=== PATIENT | male | born 1990 | race Two or more races ===

== ENCOUNTER 2017-12-05 01:43 | Emergency (ER) | payer SELFPAY ==
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
[2017-12-05] MEDS ORDERED: NS(*) 0.9% 1000 ML BAG 1,000 ML IV ONE (01:46)
[2017-12-05 01:55] LABS: PLATELET COUNT, AUTOMATED 248 K/uL (150-450)
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
--- NOTE | 2017-12-05 03:50 | RADIOLOGY IMAGING REPORT ---
FACILITY: [facility] - [place] PATIENT NAME: Fredo Mohan : 1990 MR: [id number] V: [id number] EXAM DATE: ORDERING PHYSICIAN: DIANA MALAVE TECHNOLOGIST: Location: [facility] Patient: Fredo Mohan : 1990 Visit/Account:[id number] Date of Sevice: 12/05/2017 HEAD W/O CONTRAST EXAMINATION: CT head/brain without contrast HISTORY: Intoxicated TECHNIQUE: Contiguous axial images were obtained from the skull base to the vertex without intravenou s contrast. One of the following dose optimization techniques was utilized in the performance of this exam: Autom ated exposure control; adjustment of the mA and/or kV according to the patient's size; or use of an i terative reconstruction technique. Specific details can be referenced in the facility's radiology C T exam operational policy. COMPARISON STUDIES: None FINDINGS: Ventricles/sulci/fissures: Negative Masses/hemorrhage/midline shift: Negative White matter: Negative Worley-white differentiation: Negative Extra-axial spaces: Negative Dural venous sinuses/arterial structures: Negative Skull base/calvarium: Negative Visualized mastoid air cells/paranasal sinuses: Negative IMPRESSION: 1. Negative CT scan of the head for acute intracranial pathology. Report Dictated By: Familia Solis MD at 12/05/2017 3:44 AM Report E-Signed By: Familia Solis MD at 12/05/2017 3:46 AM WSN:[id number]
[2017-12-05 04:30] VITALS: BP 99/42
== END 2017-12-05 05:05 ==
LOC: ER 01:48
DX: F10.920 Alcohol use, unspecified with intoxication, uncomplicated (principal); R79.89 Other specified abnormal findings of blood chemistry
CPT/HCPCS: 70450; 72125; 80305; 80320; 80329; 81001; 83735; 84443; 85025; 96360; 99284; J7030; 82040; 82247; 82310; 82374; 82435; 82565; 82947; 84075; 84132; 84155; 84295; 84450; 84460; 84520

== ENCOUNTER → 2017-12-05 | Outpatient (CLI) | payer SELFPAY | LOC: AMB 01:21 | PROVIDERS: ATTEND Nurse Practitioner | DX: R41.82 Altered mental status, unspecified (principal); F10.121 Alcohol abuse with intoxication delirium | CPT/HCPCS: A0425; A0427 ==